=== PATIENT | male | born 1990 | race African-American/Black ===

== ENCOUNTER 2017-06-06 02:55 | Emergency (ER) | payer BC ==
[~2017-06-06] VITALS: Ht 185.4 cm; Wt 83.3 kg
[2017-06-06] MEDS ORDERED: ZOFRAN4 MG PO (04:12)
[2017-06-06 04:18] LABS: MCH 31.2 PG (29.0-34.0); MCHC 33.7 G/DL (30.0-36.0); MCV 92.5 FL (86-99); MEAN PLAT.VOLUME 9.5 uM^3 (9.0-12.4); PLATELET COUNT 249 K/uL (156-360); RBC DIS.WIDTH-CV 14.3 % (11.8-14.6); RBC DIS.WIDTH-SD 48.8 % (39-53); RED BLOOD COUNT 4.65 M/uL (4.00-5.50); WHITE BLOOD COUNT 11.4 K/uL (4.1-10.2)
[2017-06-06 04:29] LABS: CHLORIDE 106 mEq/L (99-109); POTASSIUM 3.8 mEq/L (3.7-5.4); SODIUM 140 mEq/L (136-147)
[2017-06-06 04:32] LABS: GLUCOSE 110 mg/dL (70-99)
[2017-06-06 04:33] LABS: ANION GAP 12 MEQ/L (2-14)
[2017-06-06 04:34] LABS: TOTAL BILIRUBIN 1.5 mg/dL (0.0-1.0)
[2017-06-06 04:35] LABS: ALKALINE PHOSPHATASE 53 IU/L (3-129); GFR ESTIMATE (CALCULATED) > 59 mL/min/
[2017-06-06] MEDS ORDERED: FLEXERIL10 MG PO (04:35)
[2017-06-06 04:36] LABS: UREA NITROGEN (BUN) 18 mg/dL (9-23)
[2017-06-06 04:39] LABS: LIPASE 23 U/L (1.0-51.0)
[2017-06-06 05:07] VITALS: BP 113/68
== END 2017-06-06 04:34 | disposition home or self-care (01) ==
LOC: EME 02:55
PROVIDERS: Physician Assistant
DX: R50.9 Fever, unspecified (principal); F17.200 Nicotine dependence, unspecified, uncomplicated
CPT/HCPCS: 80053; 83690; 85027; 99281; 99283